=== PATIENT | male | born 2005 | race Caucasian/White ===

== ENCOUNTER 2025-01-06 02:28 | Emergency (ER) | payer OTHER ==
[~2025-01-06] VITALS: Ht 182.9 cm; Wt 84.2 kg
[2025-01-06 07:13] LABS: BASO # 0.0 10^3/uL (0.0-0.2); BASO % 0.5 % (0.0-1.0); EOS # 0.1 10^3/uL (0.0-0.5); EOS % 0.8 % (0.0-3.0); LYMPH # 2.1 10^3/uL (1.5-5.0); LYMPH % 31.9 % (24.0-44.0); MONO # 0.7 10^3/uL (0.0-0.8); MONO % 10.5 % (2.0-8.0); NEUTROPHILS # 3.6 10^3/uL (1.5-8.5); NEUTROPHILS % 56.0 % (36.0-66.0); PLATELET COUNT, AUTOMATED 196 10^3/uL (150-450)
[2025-01-06 07:37] LABS: CK-MB VALUE MASS 1.4 NG/ML (<3.6)
[2025-01-06 07:40] LABS: CALCIUM LEVEL 9.5 MG/DL (8.5-10.1); CARBON DIOXIDE LEVEL 28 MMOL/L (20-31); CHLORIDE LEVEL 103 MMOL/L (98-107); CREATININE FOR GFR 0.99 MG/DL (0.70-1.30); GLOMERULAR FILTRATION RATE > 90.0 (>60); MAGNESIUM LEVEL 1.9 MG/DL (1.8-2.4); POTASSIUM SERUM 4.3 MMOL/L (3.5-5.1); SODIUM LEVEL 141 MMOL/L (136-145)
[2025-01-06 07:45] LABS: CPK CREATINE PHOSPHOKINASE 108 U/L (46-171); MB/CK RELATIVE INDEX 1.29 (< OR =4)
[2025-01-06] MEDS ORDERED: HOME MED LIST COMPLETE! XX SCH (08:05)
[2025-01-06] MEDS: NS (Normal Saline) 0.9% 1,000 ML IV ONE (08:20)
[2025-01-06 08:41] LABS: CK-MB VALUE MASS < 1.0 NG/ML (<3.6)
[2025-01-06 08:42] LABS: CPK CREATINE PHOSPHOKINASE 92 U/L (46-171)
[2025-01-06 09:16] VITALS: BP 127/63
[2025-01-06 09:17] VITALS: TEMP 98; O2SAT 90
== END 2025-01-06 09:33 | disposition home or self-care (01) ==
LOC: M ED 02:28 → EDBD 02:28 → M ED 09:33
DX: R00.1 Bradycardia, unspecified (principal); F17.290 Nicotine dependence, other tobacco product, uncomplicated; Z53.9 Procedure and treatment not carried out, unspecified reason